=== PATIENT | female | born 1985 | race Caucasian/White ===

== ENCOUNTER 2020-02-01 18:17 | Emergency (ER) | payer OTHER ==
[~2020-02-01] VITALS: Ht 167.6 cm; Wt 73.9 kg
[2020-02-01 18:40] VITALS: Ht 167.6 cm; Wt 73.9 kg
[2020-02-01 19:53] VITALS: BP 130/84
== END 2020-02-01 19:53 | disposition home or self-care (01) ==
LOC: ED 18:17
DX: S01.01XA Laceration without foreign body of scalp, initial encounter (principal); W22.8XXA Striking against or struck by other objects, initial encounter; Y93.89 Activity, other specified; Y92.89 Other specified places as the place of occurrence of the external cause; Y99.8 Other external cause status
CPT/HCPCS: 90715

== ENCOUNTER 2020-02-11 18:22 | Emergency (ER) | payer OTHER ==
[~2020-02-11] VITALS: Ht 167.6 cm; Wt 74.0 kg
[2020-02-11 18:39] VITALS: Ht 167.6 cm; Wt 74.0 kg
[2020-02-11 19:08] VITALS: BP 128/85
== END 2020-02-11 19:08 | disposition home or self-care (01) ==
LOC: ED 18:22
DX: S01.01XD Laceration without foreign body of scalp, subsequent encounter (principal); Z48.00 Encounter for change or removal of nonsurgical wound dressing; X58.XXXD Exposure to other specified factors, subsequent encounter